=== PATIENT | male | born 1960 | race Caucasian/White ===

== ENCOUNTER 2023-08-05 17:20 | Emergency (ER) | payer MEDICARE, MEDICAID ==
[2023-08-05] MEDS ORDERED: Take Home: Albuterol 18 GM Inhaler, 1 Inhaler Pack INH PRN (18:06)
== END 2023-08-05 18:35 | disposition home or self-care (01) ==
LOC: SUPCPDRO 17:20 → VM.ED 17:20 → MERGE 17:20 → VM.ED 18:35
DX: J44.9 Chronic obstructive pulmonary disease, unspecified (principal); Z87.891 Personal history of nicotine dependence
CPT/HCPCS: 99283; 99284; A9270

== ENCOUNTER 2024-09-20 10:59 | Emergency (ER) | payer MEDICARE, MEDICAID ==
[2024-09-20] MEDS ORDERED: Sodium Chloride 0.9% 10 ML Syringe FLUSH PRN (11:13)
[2024-09-20 11:25] LABS: BASOPHILS PERCENT AUTO 0.1 % (0.2-1.2); EOSINOPHILS ABSOLUTE AUTO 0.2 x10^3/uL (0.0-0.5); EOSINOPHILS PERCENT AUTO 1.4 % (0.0-4.0); HEMOGLOBIN 13.4 g/dL (14.0-18.0); IMMATURE GRAN ABSOLUTE AUTO 0.07 x10^3/uL (0.00-0.07); LYMPHOCYTES ABSOLUTE AUTO 2.7 x10^3/uL (1.0-4.8); LYMPHOCYTES PERCENT AUTO 15.4 % (25.0-50.0); MEAN CORPUSCULAR HEMOGLOBIN 35.4 pg (26.0-32.0); MEAN CORPUSCULAR HGB CONC 34.4 g/dL (32.0-36.0); MEAN CORPUSCULAR VOLUME 103.2 fL (78.0-93.0); MONOCYTES ABSOLUTE AUTO 0.7 x10^3/uL (0.0-0.8); NEUTROPHILS ABSOLUTE AUTO 13.5 x10^3/uL (1.8-7.7); NEUTROPHILS PERCENT AUTO 78.7 % (50.0-80.0); PLATELET COUNT,PLT 270 x10^3/uL (130-400); RED BLOOD CELL COUNT 3.78 x10^6/uL (4.5-6.0); WHITE BLOOD CELL COUNT,WBC 17.2 x10^3/uL (4.0-10.0)
[2024-09-20] MEDS: Lactated Ringers 1,000 ML IV ONE ×2 (11:25→13:00)
[2024-09-20] MEDS: Ondansetron 4 MG/2 ML SDV IVPUSH ONE (11:26)
[2024-09-20] MEDS: HYDROmorphone 0.5 MG/0.5 ML Syringe IVPUSH ONE ×4 (11:26→14:01)
[2024-09-20 11:42] LABS: A/G RATIO 1.26; ALANINE AMINOTRANSFERASE,ALT 20 U/L (16-63); ALBUMIN 3.9 g/dL (3.4-5.0); ALKALINE PHOSPHATASE 113 U/L (46-116); ANION GAP 14.2 mmol/L (5-15); ASPARTATE AMNIOTRANSFERASE,AST 18 U/L (15-37); BILIRUBIN TOTAL 0.4 mg/dL (0.2-1.0); BLOOD UREA NITROGEN,BUN 9 mg/dL (7-18); CALCIUM 8.5 mg/dL (8.5-10.1); CARBON DIOXIDE,CO2 29 mmol/L (21-32); CHLORIDE,CL 99 mmol/L (98-107); CREATININE 1.4 mg/dL (0.70-1.30); ESTIMATED GFR 55 mL/min (>=60); GLUCOSE RANDOM 157 mg/dL (70-99); POTASSIUM,K 3.2 mmol/L (3.5-5.1); SODIUM,NA 139 mmol/L (136-145)
[2024-09-20] MEDS: Iopamidol 612 MG/ML 100 ML Bottle IVPUSH ONE (12:26)
[2024-09-20] MEDS: fentaNYL 50 MCG/ML SDV IVPUSH ONE ×3 (12:58→15:43)
[2024-09-20] MEDS: Midazolam 1 MG/ML 2 ML SDV IVPUSH ONE (13:00)
[2024-09-20] MEDS: Midazolam 1 MG/ML 2 ML SDV ONE (13:59)
[2024-09-20] MEDS: fentaNYL 50 MCG/ML SDV ONE ×2 (14:42)
== END 2024-09-20 14:10 | disposition short-term general hospital (02) ==
LOC: VM.ED 10:59
DX: S27.0XXA Traumatic pneumothorax, initial encounter (principal); J44.9 Chronic obstructive pulmonary disease, unspecified; I10 Essential (primary) hypertension; Z79.899 Other long term (current) drug therapy; W00.0XXA Fall on same level due to ice and snow, initial encounter
CPT/HCPCS: 32551; 70450; 71045; 71260; 74177; 80053; 85025; 96361; 96374; 96375; 96376; 99152; 99291; 99291-25; 99292; 99292-GF; C1729; J2250; J2405; J3010; J7120; Q9967